=== PATIENT | female | born 1955 | race Caucasian/White ===

== ENCOUNTER 2016-12-04 18:01 | Emergency (ER) | payer OTHER ==
[~2016-12-04 18:01] MED LIST: ALBUTEROL0.09 MG/A1 INH; AMLODIPINE10 MG PO; AMOXIL 875 MG875 MG PO; ATORVASTATIN CA40 MG PO; AUGMENTIN 875 M1 TAB PO; CEFUROXIME250 MG PO; FLEXERIL 5MG TAB5 MG PO; FLOVENT HF0.11 MG/Ac INH; HYDRALAZINE HCL25 MG PO; PERCOCET 325 MG1 TA2 PO; PREDNISONE 10MG10 MG PO; PREDNISONE 20MG20 MG PO; TESSALON PERLE100 MG PO; WELLBUTRIN SR150 MG PO
[2016-12-04 18:29] VITALS: BP 103/86
--- NOTE | 2016-12-04 20:23 | ED GENERAL ADULT ---
History of Present Illness General Chief Complaint: General Adult Stated Complaint: MEDICATION REACTION Source: patient, old records Exam Limitations: no limitations Vital Signs & Intake/Output Vital Signs & Intake/Output Vital Signs Date Time Temp Pulse Resp B/P Pulse O2 O2 Flow FiO2 Ox Delivery Rate 12/04 1829 97.5 120 22 103/86 96 Room Air Allergies Coded Allergies: NO KNOWN ALLERGIES (10/02/15) Reconcile Medications Lorazepam (Ativan) 0.5 MG TABLET 1-2 TAB PO Q6P PRN anxiety Multivitamin (One Daily Multivitamin) 1 EACH TABLET 1 TAB PO DAILY SUPPLEMENT (Reported) Triage Note: PER PT PRESCRIBED LOSARTAN LAST PM AND LEXAPRO THIS AM A SHORT TIME LATER, FEEL JITTERY AND CRAWLY. ? REACTION NOT SURE TO WHICH. Triage Nurses Notes Reviewed? yes Onset: Morning Duration: hour(s):, constant, continues in ED Timing: recent history Injury Environment: home Severity: moderate Modifying Factors: Improves With: medication. LMP (ages 10-50): post menopausal : No Patient currently breastfeeds: No HPI: Patient started losartan hydrochlorothiazide 100/25 one day prior to admission. The morning prior to admission patient started Lexapro 20 mg. 3 hours later she developed anxiety difficulty concentrating flushing racing thoughts. She denies fever chills nausea vomiting diarrhea abdominal pain chest pain shortness of breath headache dysuria rash bleeding. Past History Travel History Traveled to [place] past 21 day No Medical History Any Pertinent Medical History? see below for history Neurological: NONE EENT: NONE Cardiovascular: ?HTN Respiratory: NONE Gastrointestinal: NONE Hepatic: NONE Renal: NONE Musculoskeletal: NONE Psychiatric: anxiety Endocrine: NONE Blood Disorders: NONE Cancer(s): BILAT BREAST CANCER LUMPECTOMYS TOLL BOOTH OPERATOR/Reproductive: NONE History of MRSA: No History of VRE: No History of CDIFF: No Surgical History Surgical History: non-contributory Psychosocial History Who do you live with Sister Services at Home None What is your primary language Upper Sorbian Tobacco Use: Quit >30 days ago Family History Hx Contributory? No Review of Systems Review of Systems Constitutional: Reports: see HPI, malaise. EENTM: Reports: no symptoms. Respiratory: Reports: no symptoms. Cardiovascular: Reports: no symptoms. GI: Reports: no symptoms. Genitourinary: Reports: no symptoms. Musculoskeletal: Reports: no symptoms. Skin: Reports: no symptoms. Neurological/Psychological: Reports: see HPI, anxiety, cognitive dysfunction. Hematologic/Endocrine: Reports: no symptoms. Immunologic/Allergic: Reports: no symptoms. All Other Systems: Reviewed and Negative Physical Exam Physical Exam General Appearance: well developed/nourished, alert, awake, anxious, mild distress, obese Head: atraumatic, normal appearance Eyes: Bilateral: normal appearance, PERRL, EOMI. Ears, Nose, Throat: normal pharynx, normal ENT inspection Neck: normal inspection, supple, full range of motion, no midline tenderness Respiratory: normal breath sounds, chest non-tender, no respiratory distress, quiet respiration, lungs clear Cardiovascular: regular rate/rhythm, normal peripheral pulses, norml femoral pulses equa Peripheral Pulses: 4+ carotid (R), 4+ carotid (L) Gastrointestinal: normal bowel sounds, soft, non-tender, no organomegaly Back: normal inspection, normal range of motion, no vertebral tenderness Extremities: normal inspection, normal capillary refill, normal range of motion, no edema Neurologic/Psych: no motor/sensory deficits, awake, alert, oriented x 3, normal gait, normal mood/affect, 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 Skin: intact, normal color, warm/dry Lymphatic: no anterior cervical niko Core Measures ACS in differential dx? No CVA/TIA Diagnosis: No Severe Sepsis Present: No Septic Shock Present: No Progress Differential Diagnoses I considered the following diagnoses in my evaluation of the patient: Anxiety medication reaction Plan of Care: Orders Procedure Date/time Status EKG 12/04 1830 Active Initial ED EKG: normal axis, normal intervals, normal p-waves, normal QRS complex, normal sinus rhythm, no ST T wave changes Prior EKG: unchanged Departure Departure Time of Disposition: 2023 Disposition: HOME OR SELF CARE Condition: Stable Clinical Impression Primary Impression: Medication side effects Referrals: DELANO RAMÍREZ MD (PCP/Family) Additional Instructions: Stop Lexapro. If your losartan/HCTZ has scoring on the pill you can split it. If not call Dr. Ramírez for a change in your blood pressure medication. Departure Forms: Customer Survey General Discharge Information Prescriptions: Current Visit Scripts Lorazepam (Ativan) 1-2 TAB PO Q6P PRN anxiety #20 TAB Critical Care Note Critical Care Note Critical Care Time: non-applicable
[2016-12-04] MEDS ORDERED: ONE DAILY MULT1 EAC2 PO (20:24)
[2016-12-04] MEDS ORDERED: ATIVAN0.5 M1 PO (20:27)
== END 2016-12-04 21:13 ==
LOC: ERH 18:01
DX: T50.995A Adverse effect of other drugs, medicaments and biological substances, initial encounter (principal)
CPT/HCPCS: 93005; 93010

== ENCOUNTER 2017-01-03 11:43 | Emergency (ER) | payer OTHER ==
[~2017-01-03] VITALS: Ht 165.1 cm; Wt 106.1 kg
[~2017-01-03 11:43] MED LIST changes: +ATIVAN0.5 M1 PO; +ONE DAILY MULT1 EAC2 PO
--- NOTE | 2017-01-03 11:57 | ED THROAT/DENTAL COMPLAINT ---
History of Present Illness General Chief Complaint: Sore Throat, Dental Pain Stated Complaint: SORE THROAT Source: patient, old records Exam Limitations: no limitations Vital Signs & Intake/Output Vital Signs & Intake/Output Vital Signs Date Time Temp Pulse Resp B/P Pulse O2 O2 Flow FiO2 Ox Delivery Rate 01/03 1155 Room Air 01/03 1146 97.8 112 20 194/110 96 Room Air Allergies Coded Allergies: NO KNOWN ALLERGIES (10/02/15) Reconcile Medications Amoxicillin 250 MG CAPSULE 1 CAP PO TID STREP THROAT Multivitamin (One Daily Multivitamin) 1 EACH TABLET 1 TAB PO DAILY SUPPLEMENT (Reported) Triage Note: PT TO ED C/O SORE THROAT SINCE 1600 YESTERDAY AFTERNOON. AFEBRILE. Triage Nurses Notes Reviewed? yes HPI: Is present with a sore throat that started yesterday. Patient states that it is painful to swallow and she feels a little bit short of breath because her tonsils are swollen. Patient denies any difficulty swallowing. There is no problems laying flat. Positive chills but no fevers. No abdominal pain. Similar symptoms in the past when she's had strep throat. She describes the pain as a scratchy sensation in her throat that is exacerbated by swallowing. She rates it as moderate on the scale. Past History Travel History Traveled to [place] past 21 day No Medical History Any Pertinent Medical History? see below for history Neurological: NONE EENT: NONE Cardiovascular: ?HTN Respiratory: NONE Gastrointestinal: NONE Hepatic: NONE Renal: NONE Musculoskeletal: NONE Psychiatric: anxiety Endocrine: NONE Blood Disorders: NONE Cancer(s): BILAT BREAST CANCER LUMPECTOMYS EXPENSE ANALYST/Reproductive: NONE History of MRSA: No History of VRE: No History of CDIFF: No Surgical History Surgical History: non-contributory Psychosocial History Who do you live with Sister Services at Home None What is your primary language Slovak Tobacco Use: Quit >30 days ago ETOH Use: denies use Illicit Drug Use: denies illicit drug use Family History Hx Contributory? No Review of Systems Review of Systems Constitutional: Reports: see HPI, chills. EENTM: Reports: see HPI, throat pain. Respiratory: Reports: see HPI. Cardiovascular: Reports: no symptoms. GI: Reports: no symptoms. Musculoskeletal: Reports: no symptoms. Neurological/Psychological: Reports: no symptoms. Immunologic/Allergic: Reports: no symptoms. Physical Exam Physical Exam General Appearance: well developed/nourished, alert, awake Head: atraumatic, normal appearance Eyes: Bilateral: PERRL, EOMI. Mouth/Throat: tonsillar exudate, tonsillar swelling Neck: lymphadenopathy (R), lymphadenopathy (L) Cardiovascular/Respiratory: normal breath sounds, normal peripheral pulses, regular rate/rhythm, no respiratory distress Neurologic/Psych: no motor/sensory deficits, awake, alert, oriented x 3, normal gait, normal mood/affect Core Measures ACS in differential dx? No Severe Sepsis Present: No Septic Shock Present: No Progress Differential Diagnosis: strep pharyngitis Plan of Care: Orders Procedure Date/time Status THROAT CULTURE W/QUICK STREP 01/03 8598 Complete Comments: Patient states that she has history of hypertension but she stopped taking her medications because she did not want to anymore. Departure Departure Disposition: HOME OR SELF CARE Condition: Stable Clinical Impression Primary Impression: Pharyngitis due to Streptoccus pyogenes Secondary Impressions: Hypertension, Tonsillitis Referrals: DELANO RUCKER MD (PCP/Family) Additional Instructions: Drink plenty fluids. Take antibiotics until the prescription is finished. Return for any concerns. Departure Forms: Customer Survey General Discharge Information Prescriptions: Current Visit Scripts Amoxicillin 1 CAP PO TID #30 CAP
[2017-01-03] MEDS ORDERED: AMOXICILLIN250 M3 PO (12:33)
[2017-01-03 12:54] VITALS: BP 185/98
== END 2017-01-03 12:55 ==
LOC: ERH 11:43
DX: J02.0 Streptococcal pharyngitis (principal); J03.90 Acute tonsillitis, unspecified; I10 Essential (primary) hypertension; Z87.891 Personal history of nicotine dependence